=== PATIENT | male | born 1960 | race Caucasian/White ===

== ENCOUNTER 2023-03-10 15:33 | Outpatient (AMB) | payer OTHER, SELFPAY ==
[2023-03-10 15:55] VITALS: BP 113/60; PULSE 97; O2SAT 95; BMI 27.2
--- NOTE | 2023-03-10 15:55 | A.OFFPC_ITS ---
Vital Signs 03/10/23 15:55 Height 5 ft 9 in Weight 184 lb 2 oz BMI 27.2 BP 113/60 Blood Pressure Location Lt brachial Position Sitting Pulse 97 Pulse Source Pulse Oximeter Pulse Oximetry (%) 95 Oxygen Delivery Method Room Air Intake Visit Reasons: Physical exam Intake Note: Patient is here for his physical exam, and left shoulder pain complaint. States it's been a year and a half. Allergies No Known Allergies Allergy (Verified 03/10/23 15:59) Tobacco use date assessed: 03/10/23 Fall risk assessment: No Falls in past year Last assessed Fall Risk: 03/10/23 Dental Screening Dental Screen Date: 03/10/23 Did you have a dental visit in the last 12 months?: No Did you have a dental problem in the last 6 months where you did not have access to dental care?: No Was dental information given to patient?: Yes HPI Physical exam HPI Details 62 y/o male presents for a CPE with f/u labs and health maintenance. No recent labs to review. Pt has complaints of L shoulder pain. 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 Hx of exposure to dust and particles. Pt reports cough in the morning. He notes he has never had a colonoscopy. 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 1. Little interest or pleasure in doing things: not at all 2. Feeling down, depressed, or hopeless: not at all 3. Trouble falling or staying asleep, or sleeping too much: not at all 4. Feeling tired or having little energy: not at all 5. Poor appetite or overeating: not at all 6. Feeling bad about yourself - or that you are a failure or have let yourself or your family down: not at all 7. Trouble concentrating on things, such as reading the newspaper or watching television: not at all 8. Moving or speaking so slowly that other people could have noticed. Or the opposite - being so fidgety or restless that you have been moving around a lot more than usual: not at all 9. Thoughts that you would be better off or of hurting yourself in some way: not at all Total score: 0 Source: Developed by Drs. Fortino Wise, Haydee Merlos, Adam Phillips and colleagues, with an educational keri from [employer]. AUDIT C Alcohol Use Questionnaire (AUDIT-C) 1. How often do you have a drink containing alcohol?: 4 or more times a week 2. How many drinks containing alcohol do you have on a typical day when you are drinking?: 3 or 4 3. How often do you have six or more drinks on one occasion?: Never Total Score: 5 JORDAN-7 AMB Questionnaire JORDAN-7 Date JORDAN - 7 assessed: 03/10/23 Feeling nervous, anxious, or on edge: 0 = Not at all Not being able to stop or control worryin = Not at all Worrying too much about different things: 0 = Not at all Trouble relaxin = Not at all Being so restless that it is hard to sit still: 0 = Not at all Becoming easily annoyed or irritable: 0 = Not at all Source: Developed by Drs. Fortino Wise, Haydee Merlos, Adam Phillips and colleagues, with an educational keri from [employer]. Review of Systems Const Denies chills, Denies fatigue, Denies fever(s), Denies headache(s) and Denies weakness Eyes Denies change in vision ENT Denies dizziness, Denies headache(s), Denies hearing loss, Denies nasal congestion, Denies sinus pain, Denies sinus pressure and Denies sore throat Card Denies chest pain, Denies lightheadedness, Denies dyspnea and Denies other (palpitations) Resp Denies cough, Denies dyspnea and Denies wheezing GI Denies abdominal pain, Denies melena, Denies hematochezia, Denies change in bowel habits, Denies dyspepsia and Denies nausea Denies hematuria and Denies dysuria Musc Denies abnormal gait, Denies myalgias, Denies arthralgias, Denies numbness and Denies tingling Skin/Breast Denies rash, Denies unusual bruising and Denies wounds Neuro Denies abnormal gait, Denies dizziness, Denies headache(s), Denies memory loss, Denies numbness, Denies Sensory deficit (Neuro), Denies tingling and Denies weakness Psych Denies anxiety, Denies depression and Denies memory loss Endo Denies cold intolerance, Denies fatigue, Denies heat intolerance, Denies polydipsia and Denies polyuria Drew/Lymph Denies easy bleeding and Denies easy bruising Aller/Immun Denies wheezing Physical exam (Primary Care) Vital Signs: Last Vital Signs Pulse 97 03/10/23 15:55 BP 113/60 03/10/23 15:55 Pulse Ox 95 03/10/23 15:55 Oxygen Delivery Method Room Air 03/10/23 15:55 BMI result Body Mass Index 27.2 Tobacco/Smoking Status: Tobacco use Status Tobacco use date assessed 03/10/23 03/10/23 16:02 Patient Tobacco Use Status Former Tobacco user 03/10/23 16:02 e-Cigarette/Vaping Use Never Used 03/10/23 16:02 PHQ-9: PHQ-9 Score PHQ-9: Total score 0 03/10/23 16:33 Const General: no acute distress, well developed, alert and awake Nutritional Appearance: well nourished Orientation/consciousness: patient oriented x3 HENMT Head: Yes normocephalic and Yes atraumatic Ears: hearing grossly normal bilaterally and TM's normal bilaterally General nose exam: Normal external nose present and Normal nares present Mouth: Normal oral and palatal mucosa present and moist mucous membranes Teeth and gingiva: dentition normal Throat: Yes posterior oropharynx normal Eyes General: appearance normal, both eyes and all related structures Pupils: Equal, round and reactive pupils present and Pupil accommodation reflex normal EOM: EOMs intact bilaterally Neck Neck: Yes normal visual inspection, Yes no lymphadenopathy and Yes trachea midline Thyroid: Thyroid normal Carotids: no bruits Lymphatic: no lymphadenopathy noted Chest Chest palpation & inspection: normal inspection of the chest Resp Other: Coarse breath sounds throughout Effort & Inspection: normal respiratory effort Cardio Rate: regular rate Rhythm: regular rhythm Heart sounds: S1 normal heart sound present, S2 normal heart sound present, no gallops, no murmurs and no rubs Bruits: no abdominal aortic bruits and no carotid bruits GI Palpation (GI): No Abdominal aortic bruit present, Soft to palpation, nontender, No hepatosplenomegaly present and No Rebound tenderness present Auscultation: normal bowel sounds General: Yes no CVA tenderness Back/Spine/Pelvis Back: no CVA tenderness Cervical Spine: cervical ROM normal and No Cervical spine tenderness Thoracic/Lumbar Spine: thoraco-lumbar ROM normal, No pain with thoraco-lumbar ROM, No thoracic spinal tenderness and No lumbar spinal tenderness Skin Lesions: no lesions Rashes: no rashes Trauma: no lacerations or abrasions Wounds: no wounds Nails: normal Neuro General: patient oriented x3 Cranial nerves: Yes Equal, round and reactive pupils present Cognition (Neuro): normal cognition Gait exam (Neuro): Normal gait present Motor exam (neuro): 5/5 motor strength present throughout Sensory Exam: No Sensory deficit (Neuro) Deep tendon reflexes (DTR's): Right patellar reflex intensity grade: 2+ and Left patellar reflex intensity grade: 2+ Extrem General: Yes normal to inspection and No edema Psych Appearance: grossly normal Affect: normal affect Attitude: cooperative Thought process: Normal thought process present Assessment and Plan Assessment & Plan (1) Adult general medical exam: Code(s): Z00.00 - Encounter for general adult medical examination without abnormal findings Plan: 62-year-old?male?presents?for?complete?physical?exam Encouraged?healthy?diet?with?active?lifestyle?and?plenty?of?exercise (2) Left shoulder pain: Code(s): M25.512 - Pain in left shoulder Plan: Likely?muscle?strain Will?check?an?x-ray?to?rule?out?arthritis?or?other?abnormalities Start?physical?therapy Ice/heat NSAIDs (3) Hypoxia: Code(s): R09.02 - Hypoxemia Plan: History?of?exposure?to?dust?and?particles?at?work?in?construction Coarse?breath?sounds?throughout?and?chronic?cough?in?the?morning Check?chest?x-ray (4) Hand pain: Code(s): M79.643 - Pain in unspecified hand Plan: Right?index?finger?stiffness Possible?arthritis?but?more?likely?tendinitis.??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 (5) Screening for colon cancer: Code(s): Z12.11 - Encounter for screening for malignant neoplasm of colon Plan: Patient?wants?to?use?a?Cologuard?test.??No?history?of?colon?cancer,?GI?bleeding? or?family?history?of?colon?cancer. Cologuard?test?ordered (6) Screening for prostate cancer: Code(s): Z12.5 - Encounter for screening for malignant neoplasm of prostate Plan: Check?PSA Orders: Orders Comprehensive [place]. Panel Fast Today Z00.00 - Encounter for general adult medical examination without abnormal findings Complete Blood Count Auto Diff Today Z00.00 - Encounter for general adult medical examination without abnormal findings Lipid Panel Today Z00.00 - Encounter for general adult medical examination without abnormal findings Microalbumin, Random (w Creat) Today I10 - Essential (primary) hypertension Prostate Specific Antigen Scr Today Z12.5 - Encounter for screening for malignant neoplasm of prostate TSH reflex Free T4 Today Z00.00 - Encounter for general adult medical examination without abnormal findings UA and rflx microscopic Today Z00.00 - Encounter for general adult medical examination without abnormal findings PT Evaluation and Treatment Today M25.512 - Pain in left shoulder XR shoulder LT min 2V Today M25.512 - Pain in left shoulder XR chest 2V Today R09.02 - Hypoxemia Erythrocyte Sedimentation Rate Today M79.643 - Pain in unspecified hand Referrals Cologuard Test Z12.11 - Encounter for screening for malignant neoplasm of colon, Z12.12 - Encounter for screening for malignant neoplasm of rectum Medications: New ibuprofen (IBU) 800 mg PO Q8H PRN 30 tabs 2RF pain 30 days Coding Level of Care Code Est Pt Level 3 (66135) Est Pt Prev Care 40-64y(64251) Diagnoses Adult general medical exam Z00.00 Left shoulder pain M25.512 Hypoxia R09.02 Hand pain M79.643 Screening for colon cancer Z12.11 Screening for prostate cancer Z12.5
== END 2023-03-10 16:59 | disposition home or self-care (01) ==
PROVIDERS: PCP Family Medicine; Visit Provider Family Medicine
DX: Z00.00 Encounter for general adult medical examination without abnormal findings (principal); M25.512 Pain in left shoulder; R09.02 Hypoxemia; M79.641 Pain in right hand; Z12.11 Encounter for screening for malignant neoplasm of colon; Z12.5 Encounter for screening for malignant neoplasm of prostate
CPT/HCPCS: 99213; 99396

== ENCOUNTER 2023-03-18 07:44 | Outpatient (REF) | payer OTHER, SELFPAY ==
[2023-03-18 11:43] LABS: MANUAL DIFF FLAG NO
[2023-03-18 12:07] LABS: Basophils Absolute Auto 0.1 X10*3/uL (0.0-0.2); Basophils Percent Auto 0.9 % (0-2); Eosinophils Absolute Auto 0.2 X10*3/uL (0.0-0.4); Hematocrit 47.7 % (42.0-52.0); Hemoglobin 16.5 g/dl (14.0-18.0); Imm Gran Abs Auto 0.03 X10*3/uL (0.00-0.03); Imm Gran Pct Auto 0.4 % (0.0-0.4); Lymphocytes Absolute Auto 2.2 X10*3/uL (1.2-4.9); Mean Corpuscular HGB Conc 34.6 g/dl (31.0-36.0); Mean Corpuscular Hemoglobin 31.1 pg (27.0-33.0); Mean Platelet Volume 10.9 fL (9.4-12.4); Neutrophils Absolute Auto 3.9 x10*3/uL (2.0-8.3); Neutrophils Percent Auto 52.7 % (45-73); Platelet Count 201 X10*3/uL (160-400); Red Cell Distribution Width 12.1 % (11.0-16.0); White Blood Count 7.4 X10*3/uL (4.8-10.8)
[2023-03-18 13:23] LABS: Alanine Aminotransferase 94 U/L (0-40); Albumin Level 3.8 g/dL (3.5-5.0); Alkaline Phosphatase 128 U/L (39-117); Anion Gap 12 (12-20); Aspartate Amino Transferase 88 U/L (5-37); Bilirubin Total 0.7 mg/dL (0.0-1.0); Blood Urea Nitrogen 9 mg/dL (9-16); Calcium 9.7 mg/dL (8.4-10.2); Carbon Dioxide 28 mmol/L (22-29); Chloride 102 mmol/L (96-108); Cholesterol 202 mg/dL (<200); Estimated Glomerular Filt Rate > 60; Glucose Fasting 229 mg/dL (60-99); HDL Cholesterol 43 mg/dL (>40); LDL Cholesterol Calculated 110 mg/dL (<100); Sodium 137 mmol/L (135-145); Total Protein 8.1 g/dL (6.5-8.0); Triglycerides 247 mg/dL (<150)
[2023-03-18 13:31] LABS: Erythrocyte Sedimentation Rate 14 MM/HR (0-15)
[2023-03-18 13:37] LABS: Prostate Specific Antigen Scr 7.86 ng/mL (<0.05-4.0)
[2023-03-18 13:42] LABS: TSH reflex Free T4 1.56 uIU/mL (0.32-4.0)
== END 2023-03-18 07:45 | disposition home or self-care (01) ==
LOC: HO.WFDLDS 07:44
PROVIDERS: Visit Provider Family Medicine
DX: Z00.00 Encounter for general adult medical examination without abnormal findings (principal); Z12.5 Encounter for screening for malignant neoplasm of prostate; M79.643 Pain in unspecified hand
CPT/HCPCS: 36415; 80053; 80061; 84153; 84443; 85025; 85652

== ENCOUNTER 2023-03-24 07:14 | Outpatient (REF) | payer OTHER, SELFPAY ==
[2023-03-24 11:18] LABS: Appearance Urine Clear; Color Urine Yellow; Glucose Urine UA >=1000 mg/dL (Negative); Leukocyte Esterase Urine Negative (Negative); Nitrite Urine Negative (Negative); UMIC TRIGGER UA YES; Urine Blood Negative (Negative); Urine Ketones Negative (Negative); Urine Protein Negative (Neg-Trace)
[2023-03-24 11:25] LABS: Bacteria Urine None Seen (None Seen); Hyaline Casts Urine 0-2 /LPF (0-2); RBC Urine 0-2 /HPF (0-2); Squamous Epithelial Cell Urine 0-2 /HPF (0-2); WBC Urine 0-5 /HPF (0-5)
[2023-03-24 12:14] LABS: Prostate Specific Antigen Scr 7.71 ng/mL (<0.05-4.0)
[2023-03-24 12:32] LABS: Creatinine Urine 82.62 mg/dL; Microalbumin Urine < 5.0 mg/L
== END 2023-03-24 07:15 | disposition home or self-care (01) ==
LOC: HO.WFDLDS 07:14
PROVIDERS: Visit Provider Family Medicine
DX: Z12.5 Encounter for screening for malignant neoplasm of prostate (principal); I10 Essential (primary) hypertension
CPT/HCPCS: 36415; 81001; 82043; 82570; 84153

== ENCOUNTER 2023-04-06 10:48 | Outpatient (AMB) | payer OTHER, SELFPAY ==
--- NOTE | 2023-04-06 10:43 | MHC.PC.OV ---
Intake Visit Reasons: f/u CPE-labs Intake Note: Patient is following up on labs. Allergies No Known Allergies Allergy (Verified 04/06/23 10:45) Tobacco use date assessed: 03/10/23 HPI f/u CPE-labs HPI Details 62 y/o male presents to f/u CPE-labs via telemedicine. Labs were drawn 03/18/23. Reviewed labs with pt. Elevated liver enzymes. AST 88. ALT 94. Triglycerides 247. TC 202. LDL 110. HDL 43. PSA elevated at 7.86. Elevated fasting glucose of 229. Pt denies any polydipsia/polyuria. He denies any FHx of diabetes. 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 Fortino Wise, Haydee Merlos, Adam Phillips and colleagues, with an educational keri from [employer] Review of Systems Const Denies chills, Denies fatigue, Denies fever(s), Denies headache(s) and Denies weakness ENT Denies dizziness and Denies headache(s) Card Denies dyspnea Resp Denies cough, Denies dyspnea, Denies wheezing and Denies other (shortness of breath) Musc Denies numbness and Denies tingling Neuro Denies dizziness, Denies headache(s), Denies numbness, Denies tingling and Denies weakness Psych Denies anxiety and Denies depression Endo Denies fatigue Aller/Immun Denies wheezing Physical exam (Primary Care) Tobacco/Smoking Status: Tobacco use Status Tobacco use date assessed 03/10/23 04/06/23 10:44 Patient Tobacco Use Status Former Tobacco user 04/06/23 10:44 e-Cigarette/Vaping Use Never Used 04/06/23 10:44 Telehealth Telehealth Location of provider rendering services: practice address Location of patient: address on file Patient Identification confirmed using: Name, : Yes Telehealth method: voice only Patient verbally consented to treatment: Yes Patient verbally consented to billing insurance company: Yes Patient informed of any privacy concerns related to visit: Yes Minutes spent on Phone/Video with Pt.: 7 Assessment and Plan Assessment & Plan (1) Elevated PSA: Code(s): R97.20 - Elevated prostate specific antigen [PSA] Plan: Patient?has?been?refer?to?Urology. He?says?he?has?not?been?contacted?yet. Will?ask?the?office?to?check?on?the?status (2) Elevated fasting glucose: Code(s): R73.01 - Impaired fasting glucose Plan: Fasting?blood?sugar?229.??Patient?says?he?had?an?adequate?fast. Unaware?of?any?prior?elevated?fasting?blood?sugars?but?he?says?he?has?not?had?any?primary?care?for?about?30?years. No?first-degree?relatives?with?known?diabetes Patient?also?has?high?glucose?in?his?urine?and?elevated?triglycerides. Likely?diabetes. 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 (3) Hypertriglyceridemia: Code(s): E78.1 - Pure hyperglyceridemia Plan: Encouraged?diet?low?in?saturated?fats?and?cholesterol Also?has?very?high?fasting?blood?sugar?and?we?are?investigating?this (4) Elevated liver enzymes: Code(s): R74.8 - Abnormal levels of other serum enzymes Plan: Will?recheck?liver?enzymes.??If?the?same?or?higher,?will?check?liver?ultrasound Orders: Orders Hemoglobin A1c Today R73.01 - Impaired fasting glucose Comprehensive [place]. Panel Fast Today R73.01 - Impaired fasting glucose, Z00.00 - Encounter for general adult medical examination without abnormal findings Coding Level of Care Code Tele Est Pt Level 2 (23127) Diagnoses Elevated PSA R97.20 Elevated fasting glucose R73.01 Hypertriglyceridemia E78.1 Elevated liver enzymes R74.8
== END 2023-04-06 11:04 | disposition home or self-care (01) ==
LOC: HO.HMGFM 10:48
PROVIDERS: PCP Family Medicine; Visit Provider Family Medicine
DX: R97.20 Elevated prostate specific antigen [PSA] (principal); R73.01 Impaired fasting glucose; E78.1 Pure hyperglyceridemia; R74.8 Abnormal levels of other serum enzymes
CPT/HCPCS: 99441

== ENCOUNTER 2023-04-07 11:43 | Outpatient (REF) | payer OTHER, SELFPAY ==
--- NOTE | ~2023-04-07 | XR_ITS ---
EXAMINATION: XR SHOULDER, LEFT CLINICAL INFORMATION: Pain in left shoulder COMPARISON: None available. TECHNIQUE: AP external rotation, Grashey, scapular Y, and axillary views of the left shoulder. FINDINGS: The bones and soft tissues are normal. No fracture. Glenohumeral and acromioclavicular alignment is anatomic. Mild degenerative change of acromioclavicular joint. Normal glenohumeral joint space with small marginal osteophytes extending off the humeral head and inferior glenoid. No abnormal soft tissue calcifications. XR/XR shoulder LT min 2V IMPRESSION: Mild degenerative change of the acromioclavicular and glenohumeral joints.
--- NOTE | ~2023-04-07 | XR_ITS ---
EXAMINATION: XR CHEST CLINICAL INFORMATION: Hypoxemia COMPARISON: None available. TECHNIQUE: 2 views of the chest were obtained. 12:00 FINDINGS: The lungs are well expanded. Slight linear density at the lung bases is most suggestive of atelectasis and/or scar. No focal consolidation, interstitial pulmonary edema or pneumothorax. No pleural effusion. Incidental note is made of an azygos lobe, a normal variant. No significant abnormality is noted involving the heart, mediastinum or soft tissues. Multilevel degenerative changes are seen within the thoracic and lumbar spine. XR/XR chest 2V IMPRESSION: No acute cardiopulmonary disease.
== END 2023-04-07 11:44 | disposition home or self-care (01) ==
LOC: HO.HMGCX 11:43
PROVIDERS: PCP Family Medicine; Visit Provider Family Medicine
DX: M25.512 Pain in left shoulder (principal); R09.02 Hypoxemia
CPT/HCPCS: 71046; 73030

== ENCOUNTER 2023-04-20 14:17 | Outpatient (AMB) | payer OTHER, SELFPAY ==
[2023-04-20 15:06] VITALS: BP 110/62; PULSE 79; O2SAT 96; BMI 26.6
--- NOTE | 2023-04-20 15:06 | A.OFFPC_ITS ---
Vital Signs 04/20/23 15:06 Height 5 ft 9 in Weight 180 lb 4 oz BMI 26.6 BP 110/62 Blood Pressure Location Lt brachial Position Sitting Pulse 79 Pulse Source Pulse Oximeter Pulse Oximetry (%) 96 Intake Visit Reasons: follow up elev fasting blood sugars Intake Note: Patient is here to follow up on x-rays today on shoulder and chest. Allergies No Known Allergies Allergy (Verified 04/20/23 15:07) Tobacco use date assessed: 04/20/23 HPI follow up elev fasting blood sugars HPI Details 62 y/o male presents to f/u elevated fas ting blood sugars. Elevated fasting glucose of 229 from labs drawn 03/18/23. Also elevated PSA. He denies any urinary symptoms. A1c today 04/20/23 is 10.1%. Also wants to f/u x-rays for shoulders and chest. Shoulder x-ray 04/07/23 shows mild degenerative change of the acromioclavicular and glenohumeral joints. Chest x-ray was fine. 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 Fortino Wise, Haydee Merlos, Adam Phillips and colleagues, with an educational keri from [employer]. Physical exam (Primary Care) Vital Signs: Last Vital Signs Pulse 79 04/20/23 15:06 BP 110/62 04/20/23 15:06 Pulse Ox 96 04/20/23 15:06 BMI result Body Mass Index 26.6 Tobacco/Smoking Status: Tobacco use Status Tobacco use date assessed 04/20/23 04/20/23 15:13 Patient Tobacco Use Status Former Tobacco user 04/20/23 15:07 e-Cigarette/Vaping Use Never Used 04/20/23 15:07 Results AMB Hemoglobin A1c AMB Hemoglobin A1c 10.1 % Last Edit by Renetta Alexis CMA on 04/20/23 16:04 Assessment and Plan Assessment & Plan (1) Diabetes: Code(s): E11.9 - Type 2 diabetes mellitus without complications Plan: A1c?10.1%.??Diabetes - new?diagnosis Start?metformin?and?glipizide Patient?is?going?on?vacation?and?will?return?and?we?can?repeat?h is?A1c?and?adjust?his?medications. Will?also?discuss?diet?and?exercise?and?make?a?referral?for?diabetic?teaching (2) Elevated PSA: Code(s): R97.20 - Elevated prostate specific antigen [PSA] Plan: Patient?has?an?appointment?with?Urology?in?May (3) Elevated liver enzymes: Code(s): R74.8 - Abnormal levels of other serum enzymes Plan: Liver?enzymes?have?been?ordered.??Patient?has? not?gotten?his?blood?drawn?again?yet He?is?going?on?vacation?and?will?be?back?for?a?couple?of?months. 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 X-ray?shows?some?AC?joint?and?glenohumeral?joint?mild?degenerative?changes. He?can?use?NSAIDs Declines?referral?to?ortho?for?now?but?we?can?discuss?this?again?when?he?is?back ?from?his?vacation?in?a?couple?of?months Orders: Orders AMB Hemoglobin A1c Today Z13.9 - Encounter for screening, unspecified Medications: New metformin 250 mg (1/2 x 500 mg) PO BID 30 tabs 3RF 30 days glipizide ER 10 mg PO QAM 30 tabs 2RF 30 days Coding Level of Care Code Est Pt Level 4 (83791) Diagnoses Diabetes E11.9 Elevated PSA R97.20 Elevated liver enzymes R74.8 Hypertriglyceridemia E78.1 Left shoulder pain M25.512
== END 2023-04-20 16:09 | disposition home or self-care (01) ==
PROVIDERS: PCP Family Medicine; Visit Provider Family Medicine
DX: E11.9 Type 2 diabetes mellitus without complications (principal); R97.20 Elevated prostate specific antigen [PSA]; R74.8 Abnormal levels of other serum enzymes; E78.1 Pure hyperglyceridemia; M25.512 Pain in left shoulder
CPT/HCPCS: 83036; 99214

== ENCOUNTER 2023-04-20 16:02 | Outpatient (REF) | payer OTHER, SELFPAY | END 2023-04-20 16:03 | disposition home or self-care (01) | LOC: HO.LAB 16:02 | PROVIDERS: Visit Provider Family Medicine | DX: Z13.89 Encounter for screening for other disorder (principal) ==

== ENCOUNTER 2023-07-13 08:13 | Outpatient (AMB) | payer OTHER, MEDICARE, SELFPAY ==
--- NOTE | 2023-07-13 08:17 | A.OFFPC_ITS ---
Vital Signs 07/13/23 08:18 Height 5 ft 9 in Weight 189 lb 4 oz BMI 27.9 BP 136/80 Blood Pressure Location Rt brachial Position Sitting Respiration 14 Pulse 98 Pulse Source Pulse Oximeter Temp 97.7 F Temp Source Temporal Artery Scan Pulse Oximetry (%) 99 Oxygen Delivery Method Room Air Intake Visit Reasons: f/u diabetes Intake Note: Patient is asking for a 90 day refill on his ibuprofen so that he doesnt worry about it running out. Licensed Tax Consultant Required: No Accompanied by: Self / Same As Patient Allergies No Known Allergies Allergy (Verified 07/13/23 08:26) Medication List - Last Reconciled 07/13/23 by Rahat Pollock MD glipizide ER 10 mg PO QAM 30 days ibuprofen (IBU) 800 mg PO Q8H PRN 90 days metformin 250 mg (1/2 x 500 mg) PO BID 30 days Tobacco use date assessed: 04/20/23 Fall risk assessment: No Falls in past year Last assessed Fall Risk: 07/13/23 Dental Screening Dental Screen Date: 07/13/23 Did you have a dental visit in the last 12 months?: No Did you have a dental problem in the last 6 months where you did not have access to dental care?: No Was dental information given to patient?: Yes HPI f/u diabetes HPI Details 63 y/o male presents to f/u diabetes. Had started him on metformin 250mg b.i.d, gllipizide ER 10mg q.a.m. A1c today 07/13/23 6.7% which improved from 10.1% in April. He had been on vacation and did gain about 9 lbs. Had labs drawn in March which showed elevated liver enzymes, elevated lipids, elevated PSA. HPI Comments History of Present Illness Details Documentation assistance for Rahat Pollock MD, was provided by Florentino Howell,? Magnetic Tape Typewriter Operator on 07/13/2023 8:41 AM EST. I, Dr. Pollock, have read, observed, and verified documentation. [facility] Medical History (Updated 07/13/23 @ 08:40 by Florentino Howell) No pertinent past medical history Surgical History (Updated 07/13/23 @ 08:27 by Della Mcleod [facility]) No pertinent past surgical history Family History Father Heart disease No family history of mental disorder Social History Household Members: Spouse Both parents involved: No Caregiver staying overnight: No Housing: House Are you a primary mall plant caretaker to a significant other at home: No Do you presently have visiting nurse or other home services: No 75 years or older and lives alone: No Alcohol intake: current Alcohol intake frequency: a few times a week Alcohol type: beer Patient Tobacco Use Status: Former Tobacco user Quit Date: 30years ago e-Cigarette/Vaping Use: Never Used Encourage to stop smoking at least 8hrs prior to surgery: No Use of substances other than those prescribed or required for medical reasons: No Currently Displaying Signs/Symptoms of Drug Intoxication Withdrawal: No Any prior treatment program specific to substance use: No Have you been hit, kicked, punched, or otherwise hurt by someone within the past year? 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 Fortino Wise, Haydee Merlos, Adam Phillips and colleagues, with an educational keri from [employer]. Review of Systems Const Denies chills, Denies fatigue, Denies fever(s), Denies headache(s) and Denies w eakness ENT Denies dizziness and Denies headache(s) Card Denies dyspnea Resp Denies cough, Denies dyspnea, Denies wheezing and Denies other (shortness of breath) Musc Denies numbness and Denies tingling Neuro Denies dizziness, Denies headache(s), Denies numbness, Denies tingling and Denies weakness Psych Denies anxiety and Denies depression Endo Denies fatigue Aller/Immun Denies wheezing Physical exam (Primary Care) Vital Signs: Last Vital Signs Temp 97.7 F 07/13/23 08:18 Pulse 98 07/13/23 08:18 Resp 14 07/13/23 08:18 BP 136/80 07/13/23 08:18 Pulse Ox 99 07/13/23 08:18 Oxygen Delivery Method Room Air 07/13/23 08:18 BMI result Body Mass Index 27.9 Tobacco/Smoking Status: Tobacco use Status Tobacco use date assessed 04/20/23 07/13/23 08:17 Patient Tobacco Use Status Former Tobacco user 07/13/23 08:29 e-Cigarette/Vaping Use Never Used 07/13/23 08:29 Const General: well developed; No acute distress Nutritional Appearance: well nourished Orientation/consciousness: patient oriented x3 HENMT Head: Yes normocephalic and Yes atraumatic Eyes General: appearance normal, both eyes and all related structures Pupils: Equal, round and reactive pupils present EOM: EOMs intact bilaterally Resp Effort & Inspection: normal respiratory effort Neuro General: patient oriented x3 and gait normal Cranial nerves: Yes Equal, round and reactive pupils present Psych Affect: normal affect Results AMB Hemoglobin A1c AMB Hemoglobin A1c 6.7 % Last Edit by CHANNING Law on 07/13/23 08:3 1 Results Reviewed Results Reviewed: Laboratory Last Values Hgb A1c (Clinic) 6.7 % (4.0-6.0) H 07/13/23 08:30 Assessment and Plan Assessment & Plan (1) Diabetes: Code(s): E11.9 - Type 2 diabetes mellitus without complications Plan: New?diagnosis?of?diabetes?at?last?visit?and?A1c?was?over?10%. A1c?now?6.7%?on?metformin?and?glipizide.??Goal?is?less?than?7.0%; good?control He?has?not?had?diabetic?teaching?yet?as?he?was?going?on?vacation?since?last?visi t.??Referred?to?nurse?navigator Gained?about?9?lb?on?vacation?encouraged?diet?exercise?and?weight?loss. Continue?current?medication?regimen?for?now. Also?referred?him?to?an?wheel braider?for?diabetic?retinal?exam (2) Hyperlipidemia: Code(s): E78.5 - Hyperlipidemia, unspecified Plan: LDL?cholesterol?greater?than?100?for?a?diabetic. He?will?work?on?a?diet?low?in?saturated?fats?and?cholesterol.??Also?advised?weig ht?loss Also?advised?moderation?with?beer Will?recheck?lipids?in?3?months.?? We?discussed?that?if?he?has?not?able?to?bring?that?down?we?should?discuss?medica tions. (3) Elevated liver enzymes: Code(s): R74.8 - Abnormal levels of other serum enzymes Plan: Liver?enzymes?are?elevated.??Likely?multifactorial?but?patient?says?that?he?does ?drink?a?lot?of?beer Encouraged?him?to?try?to?wean?this?down Also?encouraged?weight?loss. We?discussed?that?if?liver?enzymes?are?still?high?we?should?check?an?ultrasound (4) Elevated PSA: Code(s): R97.20 - Elevated prostate specific antigen [PSA] Plan: PSA?level?is?high-over?7. Had?referred?him?to?urology?but?he?missed?t he?appointment?due?to?it?being?too?close?to?his?vacation. Had?a?discussion?with?the?patient?who?was?not?sure?he?really?needed?to?have?this ?evaluated. Agrees?to?see?Urology?so?I?have?made?a?new?referral. (5) Left shoulder pain: Code(s): M25.512 - Pain in left shoulder Plan: Ongoing?left?chris ulder?pain.??Had?offered?to?refer?him?for?physical?therapy?or?ortho?at?last?visi t. He?is?asking?for?ibuprofen?which?I?have?refilled He?can?let?me?know?if?he?wants?a?referral Orders: Orders AMB Hemoglobin A1c Today E11.9 - Type 2 diabetes mellitus without complications Lipid Panel Today E78.5 - Hyperlipidemia, unspecified, Z00.00 - Encounter for general adult medical examination without abnormal findings Comprehensive [place]. Panel Fast Today R74.8 - Abnormal levels of other serum enzymes, Z00.00 - Encounter for general adult medical examination without abnormal findings Referrals Urology Referral R97.20 - Elevated prostate specific antigen [PSA] Nurse Navigator Referral E11.9 - Type 2 diabetes mellitus without complications Ophthalmology Referral E11.9 - Type 2 diabetes mellitus without complications Medications: Changed From ibuprofen (IBU) 800 mg PO Q8H 30 days PRN 30 tabs 2RF pain To ibuprofen (IBU) 800 mg PO Q8H 90 days PRN 270 tabs 2RF pain Refilled ibuprofen (IBU) 800 mg PO Q8H 30 days PRN 30 tabs 2RF pain Coding Level of Care Code Est Pt Level 4 (50241) Diagnoses Diabetes E11.9 Hyperlipidemia E78.5 Elevated liver enzymes R74.8 Elevated PSA R97.20 Left shoulder pain M25.512
[2023-07-13 08:18] VITALS: BP 136/80; PULSE 98; RESP 14; TEMP 36.5; O2SAT 99; BMI 27.9
== END 2023-07-13 08:59 | disposition home or self-care (01) ==
PROVIDERS: PCP Family Medicine; Visit Provider Family Medicine
DX: E11.69 Type 2 diabetes mellitus with other specified complication (principal); E78.5 Hyperlipidemia, unspecified; R74.8 Abnormal levels of other serum enzymes; R97.20 Elevated prostate specific antigen [PSA]; M25.512 Pain in left shoulder
CPT/HCPCS: 83036; 99214

== ENCOUNTER 2023-10-07 07:31 | Outpatient (REF) | payer OTHER, MEDICARE, SELFPAY ==
[2023-10-07 11:27] LABS: Estimated Average Glucose 123 mg/dL; Hemoglobin A1c % 5.9 % (<6.0)
[2023-10-07 11:34] LABS: Alanine Aminotransferase 83 U/L (0-40); Alkaline Phosphatase 108 U/L (39-117); Anion Gap 13 (12-20); Aspartate Amino Transferase 73 U/L (5-37); Bilirubin Total 0.5 mg/dL (0.0-1.0); Blood Urea Nitrogen 9 mg/dL (9-16); Calcium 9.7 mg/dL (8.4-10.2); Carbon Dioxide 29 mmol/L (22-29); Chloride 103 mmol/L (96-108); Cholesterol 199 mg/dL (<200); Estimated Glomerular Filt Rate > 60; Glucose Fasting 132 mg/dL (60-99); HDL Cholesterol 48 mg/dL (>40); LDL Cholesterol Calculated 126 mg/dL (<100); Potassium 4.5 mmol/L (3.3-5.1); Sodium 140 mmol/L (135-145); Total Protein 7.7 g/dL (6.5-8.0); Triglycerides 129 mg/dL (<150)
[2023-10-07 11:41] LABS: Appearance Urine Clear; Color Urine Yellow; Glucose Urine UA Negative (Negative); Leukocyte Esterase Urine Trace (Negative); Nitrite Urine Negative (Negative); PH 5.5 (5.0-9.0); UMIC TRIGGER UA YES; Urine Blood Negative (Negative); Urine Ketones Negative (Negative); Urine Protein Negative (Neg-Trace)
[2023-10-07 11:47] LABS: Bacteria Urine None Seen (None Seen); Hyaline Casts Urine 0-2 /LPF (0-2); RBC Urine 0-2 /HPF (0-2); Squamous Epithelial Cell Urine 0-2 /HPF (0-2)
== END 2023-10-07 07:32 | disposition home or self-care (01) ==
LOC: HO.WFDLDS 07:31
PROVIDERS: Visit Provider Family Medicine
DX: Z00.00 Encounter for general adult medical examination without abnormal findings (principal); R73.01 Impaired fasting glucose; E78.5 Hyperlipidemia, unspecified
CPT/HCPCS: 36415; 80053; 80061; 81001; 83036

== ENCOUNTER 2023-10-13 08:36 | Outpatient (AMB) | payer OTHER, MEDICARE, SELFPAY ==
--- NOTE | 2023-10-13 08:48 | A.OFFPC_ITS ---
Vital Signs 10/13/23 08:49 Height 5 ft 9 in Weight 187 lb 2 oz BMI 27.6 BP 130/76 Blood Pressure Location Lt brachial Position Sitting Respiration 16 Pulse 77 Pulse Source Pulse Oximeter Temp 98 F Temp Source Tympanic Pulse Oximetry (%) 95 Oxygen Delivery Method Room Air Intake Visit Reasons: diabetes, hyperlipidemia & elevated liver enzymes. Intake Note: follow up for diabetes and elevated liver enzymes Allergies No Known Allergies Allergy (Verified 10/13/23 08:49) Medication List - Last Reconciled 10/13/23 by Rahat Pollock MD glipizide ER 10 mg PO QAM 30 days ibuprofen (IBU) 800 mg PO Q8H PRN 90 days metformin 250 mg (1/2 x 500 mg) PO BID 30 days Tobacco use date assessed: 04/20/23 Dental Screening Dental Screen Date: 07/13/23 HPI diabetes, hyperlipidemia & elevated liver enzymes. HPI Details 63 y/o male presents to f/u diabetes, hy perlipidemia and elevated liver enzymes. Labs drawn 10/07/23. Reviewed labs with pt. A1c 5.9%. He is on glipizide 10mg. Metformin 250mg b.i.d. Elevated liver enzymes - AST 73 and ALT 83. Triglycerides 129. TC 199. LDL 126. HDL 48. Has complaints of R low back pain that goes down the leg. He notes he is on his feet all day. HPI Comments History of Present Illness Details Documentation assistance for Rahat Pollock MD, was provided by Florentino Howell,? Timber Hand on 10/13/2023 at 9:12 AM EST. I, Dr. Pollock, have read, observed, and verified documentation. [facility] Medical History (Updated 10/13/23 @ 09:12 by Florentino Howell) No pertinent past medical history Surgical History (Updated 07/13/23 @ 08:27 by CHANNING Law) No pertinent past surgical history Family History Father Heart disease No family history of mental disorder Social History Household Members: Spouse Both parents involved: No Caregiver staying overnight: No Housing: House Are you a primary ostomy care nurse to a significant other at home: No Do you presently have visiting nurse or other home services: No 75 years or older and lives alone: No Alcohol intake: current Alcohol intake frequency: a few times a week Alcohol type: beer Patient Tobacco Use Status: Former Tobacco user e-Cigarette/Vaping Use: Never Used service: No 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 Fortino Wise, Haydee Merlos, Adam Phillips and colleagues, with an educational keri from [employer]. Review of Systems Const Denies chills, Denies fatigue, Denies fever(s), Denies headache(s) and Denies weakness ENT Denies dizziness and Denies headache(s) Card Denies dyspnea Resp Denies cough, Denies dyspnea, Denies wheezing and Denies other (shortness of breath) Musc Reports back pain, Denies numbness and Denies tingling Neuro Denies dizziness, Denies headache(s), Denies numbness, Denies tingling and Denies weakness Psych Denies anxiety and Denies depression Endo Denies fatigue Aller/Immun Denies wheezing Physical exam (Primary Care) Vital Signs: Last Vital Signs Temp 98 F 10/13/23 08:49 Pulse 77 10/13/23 08:49 Resp 16 10/13/23 08:49 BP 130/76 10/13/23 08:49 Pulse Ox 95 10/13/23 08:49 Oxygen Delivery Method Room Air 10/13/23 08:49 BMI result Body Mass Index 27.6 Tobacco/Smoking Status: Tobacco use Status Tobacco use date assessed 04/20/23 10/13/23 08:52 Patient Tobacco Use Status Former Tobacco user 10/13/23 08:52 e-Cigarette/Vaping Use Never Used 10/13/23 08:52 Const General: well developed; No acute distress Nutritional Appearance: well nourished Orientation/consciousness: patient oriented x3 HENMT Head: Yes normocephalic and Yes atraumatic Eyes General: appearance normal, both eyes and all related structures Pupils: Equal, round and reactive pupils present EOM: EOMs intact bilaterally Resp Effort & Inspection: normal respiratory effort Neuro General: patient oriented x3 and gait normal Cranial nerves: Yes Equal, round and reactive pupils present Psych Affect: normal affect Assessment and Plan Assessment & Plan (1) Diabetes: Code(s): E11.9 - Type 2 diabetes mellitus without complications Plan: A1c?now?5.9%.??Continues?to?improve.??Goal?is?less?than?7.0% Continue?current?medication?regimen Continue?diabetic?diet?and?work?on?weight?loss (2) Hyperlipidemia: Code(s): E78.5 - Hyperlipidemia, unspecified Plan: LDL?cholesterol?is?still?above?goal Will?start?a?low?dose?of?atorvastatin Advised?weight?loss,?exercise?and?a?diet?low?in?saturated?fats?and?cholesterol (3) Elevated liver enzymes: Code(s): R74.8 - Abnormal levels of other serum enzymes Plan: Liver?enzymes?still?high?but?have?decreased Advised?further?reduction?in?alcohol,?increase?hydration?and?work?at?weight?loss (4) Back pain: Code(s): M54.9 - Dorsalgia, unspecified Plan: Likely?recurrent?muscle?strain Will?give?him?a?script?for?meloxicam Use?ice/heat?and?topicals Start?physical?therapy If?not?improving?will?check?x-ray?and?consider?referral Orders: Orders Lipid Panel Today E78.5 - Hyperlipidemia, unspecified, Z00.00 - Encounter for general adult medical examination without abnormal findings PT Evaluation and Treatment Today M54.9 - Dorsalgia, unspecified Comprehensive [place]. Panel Fast Today E78.5 - Hyperlipidemia, unspecified, Z00.00 - Encounter for general adult medical examination without abnormal findings Medications: New meloxicam 15 mg PO DAILY 30 days 30 tabs 2RF atorvastatin 10 mg PO BEDTIME 90 days 90 tabs 2RF Coding Level of Care Code Est Pt Level 4 (44074) Diagnoses Diabetes E11.9 Hyperlipidemia E78.5 Elevated liver enzymes R74.8 Back pain M54.9
[2023-10-13 08:49] VITALS: BP 130/76; PULSE 77; RESP 16; TEMP 36.6; O2SAT 95; BMI 27.6
== END 2023-10-13 09:23 | disposition home or self-care (01) ==
PROVIDERS: PCP Family Medicine; Visit Provider Family Medicine
DX: E11.9 Type 2 diabetes mellitus without complications (principal); E78.5 Hyperlipidemia, unspecified; R74.8 Abnormal levels of other serum enzymes; M54.9 Dorsalgia, unspecified
CPT/HCPCS: 99214

== ENCOUNTER 2023-12-17 07:01 | Outpatient (RCR) | payer OTHER, MEDICARE, SELFPAY ==
--- NOTE | 2023-11-15 13:31 | MHC.PT.EP ---
[facility] [place] Office [place] Office [place] Office [address] [place] Cristina [address] [phone] F: [phone] F: [phone] F: [phone] F: [phone] Physical Therapy Plan of Care Date of Evaluation: 11/15/23 Date of Surgery: N/A Diagnosis: PT: Evaluation and treatment; M54.9 Dorsalgia, unspecified Back pain, by Rahat Pollock 10/14/23 Assessment: Pt is a RHD 63 y/o male, referred to PT from PCP Dr. Pollock for treatment of PT: Evaluation and treatment; M54.9 Dorsalgia, unspecified Back pain, by Rahat Pollock 10/14/23. Pt expresses over one year history of R sided back pain with on/off sciatica radiating to the dorsum of the foot/ankle. 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 Pt exhibits tightness of thoracic>lumbar paraspinals, has tight hamstrings, weakness of hip extensors/ weakness of hip abductors, pain with bridge/hip extension, and (+) lumbar instability testing on the right. Pt would benefit from attending skilled PT services at a frequency of 2x/week x 6 weeks to address impairments, implement HEP to improve sx, and reduce sciatica sx to resume PLOF. Pt was trialed with prone lying and standing active lumbar extension with positive gains. Pt was issued a written HEP program which included: prone lying, standing lumbar extension, seated HS stretch, SKTC, posterior pelvic tilt, was trialed with taping lumbar>thoracic paraspinals post manual IASTM therapy this date with two additional I strips on the right (ROCKTAPE handout issued for home). Pt was given a handout for ROCKTAPE removal/application/goals. Pt agreed to attend therapy twice weekly. Frequency and Duration: The patient will be seen 2x/week x 6 weeks Short Term Goals: 1. Pt will demonstrate strength hip abductor 4+/5 B. 2. Pt will demonstrate HS length improvement by 25%. 3. Pt will exhibit centralization of the R LE to the height of the buttocks. 4. Pt will demonstrate hip hinge squat during ADLS/IADLS. Care Home Goals: 1. I HEP. 2. Strength hip abd 5/5. 3. Pt will resume standing tolerance >30 minutes without sx of R sided sciatica. 4. Pt will be able to sit in the car for 20 minutes without sx R sided sciatica. Treatment Plan: Modalities to reduce pain, spasms and effusion. Manual therapy to restore motion and function. Therapeutic exercise to improve strength and flexibility. Neuromuscular re-education for posture and balance. Therapeutic activities to return to functional activities of daily living. Electronically signed by: Jessa Irving, PT, DPT Please sign and return to therapist. Thank you for your referral.
== END 2024-02-03 10:04 | disposition home or self-care (01) ==
LOC: HO.PTWFD 07:01
PROVIDERS: PCP Family Medicine; Visit Provider Family Medicine
DX: M54.9 Dorsalgia, unspecified (principal)
CPT/HCPCS: 97012; 97014; 97110; 97140; 97161; 97535

== ENCOUNTER 2024-01-24 08:25 | Outpatient (AMB) | payer OTHER, MEDICARE, SELFPAY ==
--- NOTE | 2024-01-24 08:40 | A.OFFPC_ITS ---
Vital Signs 01/24/24 08:41 Height 5 ft 9 in Weight 191 lb 8 oz BMI 28.3 BP 130/70 Blood Pressure Location Rt brachial Position Sitting Respiration 16 Pulse 86 Pulse Source Pulse Oximeter Temp 98.2 F Temp Source Oral Pulse Oximetry (%) 94 Oxygen Delivery Method Room Air Intake Visit Reasons: f/u diabetes Intake Note: f/u DM Allergies No Known Allergies Allergy (Verified 01/24/24 08:41) Tobacco use date assessed: 04/20/23 Dental Screening Dental Screen Date: 07/13/23 HPI f/u diabetes HPI Details 63 y/o male presents to f/u diabetes. A1c today 6.4%. He is on metformin 250mg b.i.d, glipizide 10mg. Tolerating his artovastatin 10mg. Reports ongoing low back pain. Notes PT has not been helping and has stopped. Reports nasal bleeding. HPI Comments History of Present Illness Details Documentation assistance for Rahat Pollock MD, was provided by Florentino Howell,? Medical Services Coordinator on 01/24/2024 at 8:54 AM EST. I, Dr. Pollock, have read, observed, and verified documentation. [facility] Medical History (Updated 01/24/24 @ 08:57 by Florentino Howell) No pertinent past medical history Surgical History (Updated 07/13/23 @ 08:27 by CHANNING Law) No pertinent past surgical history Family History Father Heart disease No family history of mental disorder Social History Household Members: Spouse Both parents involved: No Caregiver staying overnight: No Housing: House Are you a primary gericare aide teacher to a significant other at home: No Do you presently have visiting nurse or other home services: No 75 years or older and lives alone: No Alcohol intake: current Alcohol intake frequency: a few times a week Alcohol type: beer Patient Tobacco Use Status: Former Tobacco user e-Cigarette/Vaping Use: Never Used service: No 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 1. Little interest or pleasure in doing things: not at all 2. Feeling down, depressed, or hopeless: not at all 3. Trouble falling or staying asleep, or sleeping too much: not at all Source: Developed by Drs. Fortino Wise, Haydee Merlos, Adam Phillips and colleagues, with an educational keri from [employer]. Thrive Questionnaire Date Thrive assessed: 01/17/24 I am a: Patient What is your living situation today?: I choose not to answer this question Within the past 12 months, did the food you bought not last and you didn't have the money to get more?: I choose not to answer this question Within the past 12 months, did you worry whether your food would run out before you got money to buy more?: I choose not to answer this question Do you have trouble paying for medicines?: I choose not to answer this question Do you have trouble getting transportation to medical appointments?: No Do you have trouble paying your heating and electricity bill?: I choose not to answer this question Do you have trouble taking care of your child, family member or friend?: I choose not to answer this question Do you have trouble with day-to-day activities such as bathing, preparing meals, shopping, managing finances, etc.?: I choose not to answer this question Are you currently unemployed and looking for a job?: I choose not to answer this question Are you interested in more education?: I choose not to answer this question Please select the resources that you would like help with: None Currently or been in a relationship where the following occur: I choose not to answer THRIVE Score: 0 AUDIT C Alcohol Use Questionnaire (AUDIT-C) 1. How often do you have a drink containing alcohol?: 4 or more times a week 2. How many drinks containing alcohol do you have on a typical day when you are drinking?: 3 or 4 3. How often do you have six or more drinks on one occasion?: Less than monthly Total Score: 6 JORDAN-7 AMB Questionnaire JORDAN-7 Date JORDAN - 7 assessed: 03/10/23 Feeling nervous, anxious, or on edge: 0 = Not at all Not being able to stop or control worryin = Not at all Worrying too much about different things: 0 = Not at all Trouble relaxin = Not at all Being so restless that it is hard to sit still: 0 = Not at all Becoming easily annoyed or irritable: 0 = Not at all Feeling afraid as if something awful might happen: 0 = Not at all Total JORDAN-7 score (0-4 normal; 5-9 mild; 10-14 moderate; 15-21 severe): 0 Source: Developed by Drs. Fortino Wise, Haydee Merlos, Adam Phillips and colleagues, with an educational keri from [employer]. Review of Systems Const Denies chills, Denies fatigue, Denies fever(s), Denies headache(s) and Denies weakness ENT Denies dizziness and Denies headache(s) Card Denies dyspnea Resp Denies cough, Denies dyspnea, Denies wheezing and Denies other (shortness of breath) Musc Reports back pain, Denies numbness and Denies tingling Neuro Denies dizziness, Denies headache(s), Denies numbness, Denies tingling and Denies weakness Psych Denies anxiety and Denies depression Endo Denies fatigue Aller/Immun Denies wheezing Physical exam (Primary Care) Vital Signs: Last Vital Signs Temp 98.2 F 01/24/24 08:41 Pulse 86 01/24/24 08:41 Resp 16 01/24/24 08:41 BP 130/70 01/24/24 08:41 Pulse Ox 94 01/24/24 08:41 Oxygen Delivery Method Room Air 01/24/24 08:41 BMI result Body Mass Index 28.3 Tobacco/Smoking Status: Tobacco use Status Tobacco use date assessed 04/20/23 01/24/24 08:44 Patient Tobacco Use Status Former Tobacco user 01/24/24 08:44 e-Cigarette/Vaping Use Never Used 01/24/24 08:44 Thrive Assessment: Date of Thrive Assessment Date Thrive assessed 01/17/24 01/24/24 08:44 Currently or been in a relationship where the following occur: I choose not to answer Const General: well developed; No acute distress Nutritional Appearance: well nourished Orientation/consciousness: patient oriented x3 HENMT Other: R nare with blood in anterior nasal polyp on the septum Head: Yes normocephalic and Yes atraumatic Eyes General: appearance normal, both eyes and all related structures Pupils: Equal, round and reactive pupils present EOM: EOMs intact bilaterally Resp Effort & Inspection: normal respiratory effort Neuro General: patient oriented x3 and gait normal Cranial nerves: Yes Equal, round and reactive pupils present Psych Affect: normal affect Coding Level of Care Code Est Pt Level 4 (91040) Diagnoses Diabetes E11.9 Hyperlipidemia E78.5 Elevated liver enzymes R74.8 Back pain M54.9 Nasal bleeding R04.0 Assessment & Plan Assessment & Plan (1) Diabetes: Code(s): E11.9 - Type 2 diabetes mellitus without complications Category: Medical Plan: A1c?6.4%.??Controlled.??Goal?is?less?than?7.0% Continue?current?medication?regimen (2) Hyperlipidemia: Code(s): E78.5 - Hyperlipidemia, unspecified Category: Medical Plan: Patient?was?started?on?atorvastatin?at?prior?visit?and?is?tolerating this. Has?not?had?his?labs?drawn?yet?but?will?do?so?today.??Will?call?if?action?requir ed (3) Elevated liver enzymes: Code(s): R74.8 - Abnormal levels of other serum enzymes Category: Medical Plan: Following?liver?enzymes.??He?is?getting?his?labs?drawn?today Will?call?if?action?is?required (4) Back pain: Code(s): M54.9 - Dorsalgia, unspecified Category: Medical Plan: Ongoing?back?pain Meloxicam?helps.??Ibuprofen?helps?but?he?would?prefer?meloxicam. Can?pick?meloxicam?he?runs?out?of?the?ibuprofen (5) Nasal bleeding: Code(s): R04.0 - Epistaxis Category: Medical Plan: Patient?has?nasal?bleeding?from?right?near?recurrently. Area?dry?irritation?on?right?nasal?septum?with?some?blood Referred?to?ENT Can?use?nasal?saline?humidified?air Orders: Referrals Ear/Nose/Throat Referral R04.0 - Epistaxis Medications: Refilled meloxicam 15 mg PO DAILY 30 tabs 3RF 30 days
[2024-01-24 08:41] VITALS: BP 130/70; PULSE 86; RESP 16; TEMP 36.8; O2SAT 94; BMI 28.3
== END 2024-01-24 09:00 | disposition home or self-care (01) ==
PROVIDERS: PCP Family Medicine; Visit Provider Family Medicine
DX: E11.69 Type 2 diabetes mellitus with other specified complication (principal); E78.5 Hyperlipidemia, unspecified; R74.8 Abnormal levels of other serum enzymes; M54.9 Dorsalgia, unspecified; R04.0 Epistaxis

== ENCOUNTER 2024-01-24 09:07 | Outpatient (REF) | payer OTHER, MEDICARE, SELFPAY ==
[2024-01-24 12:08] LABS: Alanine Aminotransferase 82 U/L (0-40); Albumin Level 3.9 g/dL (3.5-5.0); Alkaline Phosphatase 121 U/L (39-117); Anion Gap 11 (12-20); Aspartate Amino Transferase 77 U/L (5-37); Bilirubin Total 0.7 mg/dL (0.0-1.0); Blood Urea Nitrogen 11 mg/dL (9-16); Calcium 9.6 mg/dL (8.4-10.2); Carbon Dioxide 29 mmol/L (22-29); Chloride 101 mmol/L (96-108); Cholesterol 142 mg/dL (<200); Estimated Glomerular Filt Rate > 60; Glucose Fasting 163 mg/dL (60-99); HDL Cholesterol 50 mg/dL (>40); LDL Cholesterol Calculated 75 mg/dL (<100); Sodium 137 mmol/L (135-145); Total Protein 7.6 g/dL (6.5-8.0); Triglycerides 85 mg/dL (<150)
== END 2024-01-24 09:08 | disposition home or self-care (01) ==
LOC: HO.WFDLDS 09:07
PROVIDERS: Visit Provider Family Medicine
DX: Z00.00 Encounter for general adult medical examination without abnormal findings (principal); R74.8 Abnormal levels of other serum enzymes; E78.5 Hyperlipidemia, unspecified
CPT/HCPCS: 36415; 80053; 80061

== ENCOUNTER 2024-07-03 08:22 | Outpatient (AMB) | payer BC, SELFPAY ==
--- NOTE | 2024-07-03 08:40 | A.OFFPC_ITS ---
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 Required: No Allergies No Known Allergies Allergy (Verified 07/03/24 08:41) Medication List - Last Reconciled 07/03/24 by Rahat Pollock MD atorvastatin 10 mg PO BEDTIME 90 days gabapentin 300 mg PO BID glipizide ER 10 mg PO QAM 30 days ibuprofen (IBU) 800 mg PO Q8H PRN 90 days meloxicam 15 mg PO DAILY 30 days metformin 250 mg (1/2 x 500 mg) PO BID 30 days Tobacco use date assessed: 07/03/24 Fall risk assessment: No Falls in past year Last assessed Fall Risk: 07/03/24 Dental Screening Dental Screen Date: 07/03/24 Did you have a dental visit in the last 12 months?: No Did you have a dental problem in the last 6 months where you did not have access to dental care?: No Was dental information given to patient?: Patient has dentist HPI f/u blood pressure HPI Details 63 y/o male presents to f/u diabetes, bl ood pressure. Labs drawn 01/24/24. Reviewed labs with pt. Fasting glucose 163. Elevated liver enzymes - AST 77, ALT 82. Triglycerides 85. TC 142. LDL improved from 126 to 75. HDL 50. He is on artovastatin 10mg. A1c today 07/03/24 is 6.8%. Blood pressure today 142/80, 74p. Does not check his blood pressure at home. Had switched off gabapentin and has been taking meloxicam for his back pain. Continues to follow up with physiatry. HPI Comments History of Present Illness Details Documentation assistance for Rahat Pollock MD, was provided by Florentino Howell,? Cardiovascular Disease Specialist on 07/03/2024 at 9:04 AM I, Dr. Pollock, have read, observed, and verified documentation. ?? PFSH Medical History (Updated 07/03/24 @ 09:03 by Florentino Howell) No pertinent past medical history Surgical History (Updated 07/13/23 @ 08:27 by CHANNING Law) No pertinent past surgical history Family History Father Heart disease No family history of mental disorder Social History Household Members: Spouse Both parents involved: No Caregiver staying overnight: No Housing: House Are you a primary primary care sales representative to a significant other at home: No Do you presently have visiting nurse or other home services: No 75 years or older and lives alone: No Alcohol intake: current Alcohol intake frequency: a few times a week Alcohol type: beer Patient Tobacco Use Status: Former Tobacco user e-Cigarette/Vaping Use: Never Used service: No 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 1. Little interest or pleasure in doing things: not at all 2. Feeling down, depressed, or hopeless: not at all 3. Trouble falling or staying asleep, or sleeping too much: not at all 4. Feeling tired or having little energy: not at all 5. Poor appetite or overeating: not at all 6. Feeling bad about yourself - or that you are a failure or have let yourself or your family down: not at all 7. Trouble concentrating on things, such as reading the newspaper or watching television: not at all 8. Moving or speaking so slowly that other people could have noticed. Or the opposite - being so fidgety or restless that you have been moving around a lot more than usual: not at all 9. Thoughts that you would be better off or of hurting yourself in some way : not at all Total score: 0 Depression Screening Interpretation: Negative Depression Screening Done: Yes 08212 - PHQ-9 Billing: Yes Source: Developed by Drs. Fortino Wise, Haydee Merlos, Adam Phillips and colleagues, with an educational keri from [employer]. Thrive Questionnaire Date Thrive assessed: 07/03/24 I am a: Patient What is your living situation today?: I choose not to answer this question Within the past 12 months, did the food you bought not last and you didn't have the money to get more?: I choose not to answer this question Within the past 12 months, did you worry whether your food would run out before you got money to buy more?: I choose not to answer this question Do you have trouble paying for medicines?: I choose not to answer this question Do you have trouble getting transportation to medical appointments?: I choose not to answer this question Do you have trouble paying your heating and electricity bill?: I choose not to answer this question Do you have trouble taking care of your child, family member or friend?: I choose not to answer this question Do you have trouble with day-to-day activities such as bathing, preparing meals, shopping, managing finances, etc.?: I choose not to answer this question Are you currently unemployed and looking for a job?: I choose not to answer this question Are you interested in more education?: I choose not to answer this question Please select the resources that you would like help with: None Currently or been in a relationship where the following occur: I choose not to answer THRIVE Score: 0 AUDIT C Alcohol Use Questionnaire (AUDIT-C) 1. How often do you have a drink containing alcohol?: 4 or more times a week 2. How many drinks containing alcohol do you have on a typical day when you are drinking?: 3 or 4 3. How often do you have six or more drinks on one occasion?: Less than monthly Total Score: 6 JORDAN-7 AMB Questionnaire JORDAN-7 Date JORDAN - 7 assessed: 07/03/24 Feeling nervous, anxious, or on edge: 0 = Not at all Not being able to stop or control worryin = Not at all Worrying too much about different things: 0 = Not at all Trouble relaxin = Not at all Being so restless that it is hard to sit still: 0 = Not at all Becoming easily annoyed or irritable: 0 = Not at all Feeling afraid as if something awful might happen: 0 = Not at all Total JORDAN-7 score (0-4 normal; 5-9 mild; 10-14 moderate; 15-21 severe): 0 Source: Developed by Drs. Fortino Wise, Adam Kemp and colleagues, with an educational keri from [employer]. JORDAN-7 Assessment Billing JORDAN-7 Assessment Tool: JORDAN-7 Assessment 68540 Review of Systems Const Denies chills, Denies fatigue, Denies fever(s), Denies headache(s) and Denies weakness ENT Denies dizziness and Denies headache(s) Card Denies dyspnea Resp Denies cough, Denies dyspnea, Denies wheezing and Denies other (shortness of breath) Musc Denies numbness and Denies tingling Neuro Denies dizziness, Denies headache(s), Denies numbness, Denies tingling and Denies weakness Psych Denies anxiety and Denies depression Endo Denies fatigue Aller/Immun Denies wheezing Physical exam (Primary Care) Vital Signs: Last Vital Signs Temp 97.5 F 07/03/24 08:44 Pulse 74 07/03/24 08:44 Resp 13 07/03/24 08:44 BP 142/80 H 07/03/24 08:44 Pulse Ox 95 07/03/24 08:44 Oxygen Delivery Method Room Air 07/03/24 08:44 BMI result Body Mass Index 27.8 Tobacco/Smoking Status: Tobacco use Status Tobacco use date assessed 07/03/24 07/03/24 08:46 Patient Tobacco Use Status Former Tobacco user 07/03/24 08:46 e-Cigarette/Vaping Use Never Used 07/03/24 08:46 PHQ-9: PHQ-9 Score PHQ-9: Total score 0 07/03/24 09:04 Depression Screening Interpretation: Negative Thrive Assessment: Date of Thrive Assessment Date Thrive assessed 07/03/24 07/03/24 08:46 Currently or been in a relationship where the following occur: I choose not to answer Const General: well developed; No acute distress Nutritional Appearance: well nourished Orientation/consciousness: patient oriented x3 HENMT Head: Yes normocephalic and Yes atraumatic Eyes General: appearance normal, both eyes and all related structures Pupils: Equal, round and reactive pupils present EOM: EOMs intact bilaterally Resp Effort & Inspection: normal respiratory effort Neuro General: patient oriented x3 and gait normal Cranial nerves: Yes Equal, round and reactive pupils present Psych Affect: normal affect Coding Level of Care Code Est Pt Level 4 (05022) Diagnoses Diabetes E11.9 Hyperlipidemia E78.5 Elevated liver enzymes R74.8 Elevated blood pressure reading R03.0 Back pain M54.9 Additional Codes JORDAN-7 Assessment Billing - JORDAN-7 Assessment Tool: JORDAN-7 Assessment 71113 ([id number]) PHQ-9 - 03393 - PHQ-9 Billing: Yes ([id number]) Assessment & Plan Assessment & Plan (1) Diabetes: Code(s): E11.9 - Type 2 diabetes mellitus without complications Category: Medical Plan: A1c?6.8%.??Controlled.??Goal?is?less?than?7.0% Continue?current?medications (2) Hyperlipidemia: Code(s): E78.5 - Hyperlipidemia, unspecified Category: Medical Plan: Lipids?now?well?controlled?on?atorvastatin?10?mg?daily.??Patient?would?like?to?d ecrease?this He?will?take?atorvastatin?every?other?day Will?continue?to?follow?lipids?at?a subsequent?visit (3) Elevated liver enzymes: Code(s): R74.8 - Abnormal levels of other serum enzymes Category: Medical Plan: Liver?enzymes?remain?elevated Will?check?ultrasound Encouraged?good?hydration,?weight?loss,?decrease?Tylenol?and?alcohol Will?continue?to?follow (4) Elevated blood pressure reading: Code(s): R03.0 - Elevated blood-pressure reading, without diagnosis of hypertension Category: Medical Plan: Blood?pressure?is?elevated?today. Previously?has?been?in?prehypertensive?range Encouraged?weight?loss?exercise?and?a?diet?low?in?salt/sodium Will?recheck?at?next?visit.??We?discussed?that?if?it?is?still?in?hyperten sive?range?we?should?consider?medication. (5) Back pain: Code(s): M54.9 - Dorsalgia, unspecified Category: Medical Plan: Continue?to?follow-up?with?physiatry Continue?use?meloxicam?p.r.n. Orders: Orders US abdomen robert w elastography Today R74.8 - Abnormal levels of other serum enzymes Medications: Changed From atorvastatin 10 mg PO BEDTIME 90 days 90 tabs 2RF R74.8 - Abnormal levels of other serum enzymes To atorvastatin 10 mg PO Q OTHER DAY 90 days 45 tabs 2RF R74.8 - Abnormal levels of other serum enzymes Refilled meloxicam 15 mg PO DAILY 30 days 30 tabs 3RF R74.8 - Abnormal levels of other serum enzymes glipizide ER 10 mg PO QAM 30 days 30 tabs 2RF R74.8 - Abnormal levels of other serum enzymes metformin 250 mg (1/2 x 500 mg) PO BID 30 days 30 tabs 3RF R74.8 - Abnormal levels of other serum enzymes
[2024-07-03 08:44] VITALS: BP 142/80; PULSE 74; RESP 13; TEMP 36.4; O2SAT 95; BMI 27.8
== END 2024-07-03 09:11 | disposition home or self-care (01) ==
LOC: HO.HMCFM 08:23
PROVIDERS: PCP Family Medicine; Visit Provider Family Medicine
DX: E11.9 Type 2 diabetes mellitus without complications (principal); E78.5 Hyperlipidemia, unspecified; R74.8 Abnormal levels of other serum enzymes; R03.0 Elevated blood-pressure reading, without diagnosis of hypertension; M54.9 Dorsalgia, unspecified

== ENCOUNTER → 2024-07-03 08:22 | Outpatient (BNVA) | payer BC, SELFPAY | PROVIDERS: PCP Family Medicine; Visit Provider Family Medicine | DX: E11.9 Type 2 diabetes mellitus without complications (principal); E78.5 Hyperlipidemia, unspecified; R74.8 Abnormal levels of other serum enzymes; R03.0 Elevated blood-pressure reading, without diagnosis of hypertension; M54.9 Dorsalgia, unspecified; Z79.899 Other long term (current) drug therapy | CPT/HCPCS: 83036; 96127 ==

== ENCOUNTER 2025-01-01 08:25 | Outpatient (REF) | payer BC, SELFPAY ==
[2025-01-01 11:27] LABS: Appearance Urine Clear; Glucose Urine UA Negative (Negative); PH 5.5 (5.0-9.0); Specific Gravity - Urine 1.015 (1.005-1.025); UMIC TRIGGER UACC YES
[2025-01-01 11:28] LABS: MANUAL DIFF FLAG NO
[2025-01-01 11:47] LABS: White Blood Count 8.5 X10*3/uL (4.8-10.8)
[2025-01-01 11:48] LABS: Hematocrit 47.6 % (42.0-52.0); Hemoglobin 15.9 g/dl (14.0-18.0); Imm Gran Abs Auto 0.02 X10*3/uL (0.00-0.03); Imm Gran Pct Auto 0.2 % (0.0-0.4); Lymphocytes Absolute Auto 2.7 X10*3/uL (1.2-4.9); Mean Corpuscular HGB Conc 33.4 g/dl (31.0-36.0); Mean Corpuscular Hemoglobin 30.5 pg (27.0-33.0); Mean Corpuscular Volume 91.4 fL (80.0-98.0); NRBC Abs Auto 0.000 X10*3/uL (0.0-0.012); NRBC Pct Auto 0.0 /100WBC (0.0-0.2); Platelet Count 222 X10*3/uL (160-400); Red Blood Count 5.21 X10*6/uL (4.60-5.80)
[2025-01-01 12:20] LABS: Alanine Aminotransferase 85 U/L (0-40); Albumin Level 4.1 g/dL (3.5-5.0); Alkaline Phosphatase 110 U/L (39-117); Anion Gap 10 (12-20); Aspartate Amino Transferase 63 U/L (5-37); Blood Urea Nitrogen 13 mg/dL (9-16); Calcium 9.3 mg/dL (8.4-10.2); Carbon Dioxide 30 mmol/L (22-29); Chloride 104 mmol/L (96-108); Estimated Glomerular Filt Rate > 60; Potassium 4.2 mmol/L (3.3-5.1); Sodium 140 mmol/L (135-145); Total Protein 7.6 g/dL (6.5-8.0)
== END 2025-01-01 08:26 | disposition home or self-care (01) ==
LOC: HO.WFDLDS 08:25
PROVIDERS: PCP Family Medicine; Visit Provider Family Medicine
DX: Z00.00 Encounter for general adult medical examination without abnormal findings (principal); E78.5 Hyperlipidemia, unspecified; E11.9 Type 2 diabetes mellitus without complications; R74.8 Abnormal levels of other serum enzymes; R03.0 Elevated blood-pressure reading, without diagnosis of hypertension; Z12.5 Encounter for screening for malignant neoplasm of prostate
CPT/HCPCS: 36415; 80053; 81001; 83036; 84153; 84443; 85025

== ENCOUNTER 2025-01-01 08:25 | Outpatient (AMB) | payer BC, SELFPAY ==
--- NOTE | 2025-01-01 08:32 | A.OFFPC_ITS ---
Vital Signs 01/01/25 08:39 Height 5 ft 9 in Weight 189 lb 6 oz BMI 28.0 BP 128/80 Blood Pressure Location Lt brachial Position Sitting Respiration 16 Pulse 75 Pulse Source Pulse Oximeter Temp 97.8 F Temp Source Oral Pulse Oximetry (%) 95 Oxygen Delivery Method Room Air Intake Visit Reasons: f/u elevated BP reading, elevated liver enzymes Intake Note: patient is scheduled for b/p follow up on a1c Personnel Administrator Required: No Allergies No Known Allergies Allergy (Verified 01/01/25 08:38) Medication List - Last Reconciled 01/01/25 by Rahat Pollock MD atorvastatin 10 mg PO Q OTHER DAY 90 days glipizide ER 10 mg PO QAM 30 days meloxicam 15 mg PO DAILY 30 days metformin 250 mg (1/2 x 500 mg) PO BID 30 days Tobacco use date assessed: 07/03/24 Dental Screening Dental Screen Date: 07/03/24 HPI f/u elevated BP reading, elevated liver enzymes HPI Details Patient returns to follow-up diabetes, elevated blood pressure and elevated liver enzymes Taking metformin and glipizide as prescribed Blood pressure was elevated at his last visit. He does not have a diagnosis of hypertension in was not taking medications for blood pressure. Liver enzymes have been elevated. I had ordered an ultrasound. Patient declined this and says he was not in the area for the past 6 months. [facility] Medical History (Updated 07/03/24 @ 09:03 by Florentino Howell) No pertinent past medical history Surgical History (Updated 07/13/23 @ 08:27 by CHANNING Law) No pertinent past surgical history Family History Father Heart disease No family history of mental disorder Social History Household Members: Spouse Both parents involved: No Caregiver staying overnight: No Housing: House Are you a primary director of primary care to a significant other at home: No Do you presently have visiting nurse or other home services: No 75 years or older and lives alone: No Alcohol intake: current Alcohol intake frequency: a few times a week Alcohol type: beer Patient Tobacco Use Status: Former Tobacco user e-Cigarette/Vaping Use: Never Used service: No 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) Cognitive needs: No Hearing needs: No Vision needs: No Questionnaire Thrive Questionnaire Date Thrive assessed: 06/26/24 I am a: Patient What is your living situation today?: I choose not to answer this question Within the past 12 months, did the food you bought not last and you didn't have the money to get more?: I choose not to answer this question Within the past 12 months, did you worry whether your food would run out before you got money to buy more?: I choose not to answer this question Do you have trouble paying for medicines?: I choose not to answer this question Do you have trouble getting transportation to medical appointments?: I choose not to answer this question Do you have trouble paying your heating and electricity bill?: I choose not to answer this question Do you have trouble taking care of your child, family member or friend?: I choose not to answer this question Do you have trouble with day-to-day activities such as bathing, preparing meals, shopping, managing finances, etc.?: I choose not to answer this question Are you currently unemployed and looking for a job?: I choose not to answer this question Are you interested in more education?: I choose not to answer this question Please select the resources that you would like help with: None Currently or been in a relationship where the following occur: I choose not to answer THRIVE Score: 0 JORDAN-7 AMB Questionnaire JORDAN-7 Date JORDAN - 7 assessed: 07/03/24 Source: Developed by Drs. Fortino Wise, Haydee Merlos, Adam Phillips and colleagues, with an educational keri from [employer]. Review of Systems Const Denies chills, Denies fatigue, Denies fever(s), Denies headache(s) and Denies weakness ENT Denies dizziness and Denies headache(s) Card Denies chest pain, Denies lightheadedness, Denies dyspnea and Denies other (Palpitations) Resp Denies cough, Denies dyspnea, Denies wheezing and Denies other ( shortness of breath) Musc Denies numbness and Denies tingling Neuro Denies dizziness, Denies headache(s), Denies numbness, Denies tingling, Denies paresthesias and Denies weakness Psych Denies anxiety and Denies depression Endo Denies fatigue Aller/Immun Denies wheezing Physical exam (Primary Care) Vital Signs: Last Vital Signs Temp 97.8 F 01/01/25 08:39 Pulse 75 01/01/25 08:39 Resp 16 01/01/25 08:39 BP 128/80 01/01/25 08:39 Pulse Ox 95 01/01/25 08:39 Oxygen Delivery Method Room Air 01/01/25 08:39 BMI result Body Mass Index 28.0 Tobacco/Smoking Status: Tobacco use Status Tobacco use date assessed 07/03/24 01/01/25 08:33 Patient Tobacco Use Status Former Tobacco user 01/01/25 08:33 e-Cigarette/Vaping Use Never Used 01/01/25 08:33 Thrive Assessment: Date of Thrive Assessment Date Thrive assessed 06/26/24 01/01/25 08:33 Currently or been in a relationship where the following occur: I choose not to answer Const General: no acute distress and well developed Nutritional Appearance: well nourished Orientation/consciousness: patient oriented x3 HENMT Head: Yes normocephalic and Yes atraumatic Eyes General: appearance normal, both eyes and all related structures Pupils: Equal, round and reactive pupils present EOM: EOMs intact bilaterally Resp Effort & Inspection: normal respiratory effort Auscultation: clear to auscultation bilaterally Cardio Rate: regular rate Rhythm: regular rhythm Heart sounds: S1 normal heart sound present, S2 normal heart sound present, no gallops, no murmurs and no rubs Neuro General: patient oriented x3 and gait normal Cranial nerves: Yes Equal, round and reactive pupils present Psych Affect: normal affect Results AMB Hemoglobin A1c AMB Hemoglobin A1c 6.6 % Last Edit by CHANNING Cardona on 01/01/25 08:45 Results Reviewed Results Reviewed: Laboratory Last Values Hgb A1c (Clinic) 6.6 % (4.0-6.0) H 01/01/25 08:43 Coding Level of Care Code Est Pt Level 4 (93163) Diagnoses Diabetes E11.9 Elevated blood pressure reading R03.0 Elevated liver enzymes R74.8 Assessment & Plan Assessment & Plan (1) Diabetes: Code(s): E11.9 - Type 2 diabetes mellitus without complications Category: Medical Plan: A1c 6.6%. Good control. Goal is less than 7% Continue metformin and glipizide as prescribed Continue diabetic diet (2) Elevated blood pressure reading: Code(s): R03.0 - Elevated blood-pressure reading, without diagnosis of hypertension Category: Medical Plan: Blood pressure was too high at last visit. Blood pressure is okay today. We can continue to monitor (3) Elevated liver enzymes: Code(s): R74.8 - Abnormal levels of other serum enzymes Category: Medical Plan: Patient has had chronically elevated liver enzymes. Had ordered ultrasound but patient declined this at that time. Patient agrees to get ultrasound. Reordered. Will recheck liver enzymes today as well Will call patient if action is required Orders: Orders AMB Hemoglobin A1c Today E11.9 - Type 2 diabetes mellitus without complications Comprehensive Met. Panel Today R74.8 - Abnormal levels of other serum enzymes UA CC w/rflx Micro + Cult 4 Months Z00.00 - Encounter for general adult medical examination without abnormal findings Comprehensive [place]. Panel Fast 4 Months Z00.00 - Encounter for general adult medical examination without abnormal findings Complete Blood Count Auto Diff 4 Months Z00.00 - Encounter for general adult medical examination without abnormal findings Prostate Specific Antigen Scr 4 Months Z12.5 - Encounter for screening for malignant neoplasm of prostate TSH reflex Free T4 4 Months Z00.00 - Encounter for general adult medical examination without abnormal findings
[2025-01-01 08:39] VITALS: BP 128/80; PULSE 75; RESP 16; TEMP 36.6; O2SAT 95; BMI 28.0
== END 2025-01-01 08:58 | disposition home or self-care (01) ==
LOC: HO.HMCFM 08:26
PROVIDERS: PCP Family Medicine; Visit Provider Family Medicine
DX: E11.9 Type 2 diabetes mellitus without complications (principal); R03.0 Elevated blood-pressure reading, without diagnosis of hypertension; R74.8 Abnormal levels of other serum enzymes